=== PATIENT | female | born 1960 | race Caucasian/White ===

== ENCOUNTER → 2020-06-29 09:51 | Outpatient (CLI) | payer OTHER, SELFPAY ==
--- NOTE | ~2020-06-29 | MM_ITS ---
EXAMINATION: MM screening [facility] BI w jeyson HISTORY: Screening mammogram TECHNIQUE: Craniocaudal and mediolateral oblique 3-D tomosynthesis images were obtained and synthetic 2-D images were generated. CAD analysis was submitted and interpreted. COMPARISON: 05/20/2019, 04/16/2018, 03/07/2017 BREAST PARENCHYMAL COMPOSITION: There are scattered areas of fibroglandular density. FINDINGS: There is no evidence of suspicious mass, calcification, or architectural distortion to sugg est malignancy in either breast. There has been no suspicious interval change. IMPRESSION: 1. No mammographic evidence of malignancy. 2. Recommend routine screening mammography in one year. BI-RADS Category 1: Negative Reviewed, dictated and finalized at location A.
== END ==
PROVIDERS: Visit Provider Obstetrics & Gynecology
DX: Z12.31 Encounter for screening mammogram for malignant neoplasm of breast (principal)
CPT/HCPCS: 77063; 77067

== ENCOUNTER → 2021-07-04 10:01 | Outpatient (CLI) | payer OTHER, SELFPAY ==
--- NOTE | ~2021-07-04 | MM_ITS ---
EXAMINATION: MM screening [facility] BI w jeyson HISTORY: Screening mammogram TECHNIQUE: Craniocaudal and mediolateral oblique 3-D tomosynthesis images were obtained and synthetic 2-D images were generated. CAD analysis was submitted and interpreted. COMPARISON: 06/29/2020, 05/20/2019, 04/16/2018 BREAST PARENCHYMAL COMPOSITION: There are scattered areas of fibroglandular density. FINDINGS: There is no evidence of suspicious mass, calcification, or architectural distortion to sugg est malignancy in either breast. There has been no suspicious interval change. IMPRESSION: 1. No mammographic evidence of malignancy. 2. Recommend routine screening mammography in one year. BI-RADS Category 1: Negative Reviewed, dictated and finalized at location A.
== END ==
PROVIDERS: Visit Provider Obstetrics & Gynecology
DX: Z12.31 Encounter for screening mammogram for malignant neoplasm of breast (principal)
CPT/HCPCS: 77063; 77067

== ENCOUNTER → 2022-10-10 12:47 | Outpatient (CLI) | payer OTHER, SELFPAY ==
--- NOTE | ~2022-10-10 | DEXA_ITS ---
Bone Density Report Name: GUZMAN ELIZABETH Age: 62 Sex: Female Ethnicity: White Date of : 1960 Indication: postmenopausal; screening for osteoporosis; height loss; Referring Provider: BILLY, YONATAN Study: Bone densitometry was performed. Exam Date: October 10, 2022 Accession number: [id number] Bone Density: Region BMD T-score Z-score Classification AP Spine (L1-L4) 0.993 -0.5 1.2 Normal Femoral Neck (Left) 0.798 -0.5 1.0 Normal Total Hip (Left) 0.943 0.0 1.1 Normal Femoral Neck (Right) 0.797 -0.5 1.0 Normal Total Hip (Right) 0.940 0.0 1.1 Normal Total Hip Mean 0.942 0.0 1.1 Normal World Health Organization criteria for BMD impression classify patients as: Normal (T-score at or above -1.0), Osteopenia (T-score between -1.0 and -2.5), or Osteoporosis (T-score at or below -2.5). 10-year Fracture Risk: FRAX not reported because: All T-scores for Spine Total, Hip Total, Femoral Neck at or above -1.0 Clinical Information Provided by Patient: Has used the following medications: Calcium, MTV, vit D included in calcium Patient maximum height was 65 Menopause Age: 57 No regular weight bearing exercise Drinks caffeinated beverages Onset of menses at age 13.5 Number of children 2 Impression: The patient has normal bone mass. Discussion: BONE DENSITY IS ABOVE THE MINIMUM DESIRABLE LEVEL AT ALL SKELETAL SITES TESTED. This patient?s bone mineral density is above the minimum desirable level (T-score -1.0 or better) at all sites measured. The patient should follow a healthful lifestyle (good nutrition with adequate calcium and vitamin D, and appropriate weight-bearing exercise). Follow-Up: Consider repeating this study in 5 years or sooner if there is some new clinical indication. Reported by: WILIAN on 10/10/2022 1:26:00 PM. Reviewed, dictated and finalized at location APedro DOHERTY
--- NOTE | ~2022-10-10 | MM_ITS ---
EXAMINATION: MM screening [facility] BI w jeyson HISTORY: Screening TECHNIQUE: Craniocaudal and mediolateral oblique 3-D tomosynthesis images were obtained and synthetic 2-D images were generated. CAD analysis was submitted and interpreted. COMPARISON: Comparison to multiple prior studies sequentially, with oldest reviewed study dated 02/19. BREAST PARENCHYMAL COMPOSITION: There are scattered areas of fibroglandular density. FINDINGS: There is no evidence of suspicious mass, calcification, or architectural distortion to sugg est malignancy in either breast. There has been no suspicious interval change. IMPRESSION: 1. No mammographic evidence of malignancy. 2. Recommend routine screening mammography in one year. BI-RADS Category 1: Negative Reviewed, dictated and finalized at location A. W MACHINE SET UP OPERATOR
== END ==
PROVIDERS: PCP Family Medicine; Visit Provider Registered Nurse School
DX: Z12.31 Encounter for screening mammogram for malignant neoplasm of breast (principal); Z13.820 Encounter for screening for osteoporosis; Z78.0 Asymptomatic menopausal state
CPT/HCPCS: 77063; 77067; 77080

== ENCOUNTER 2023-10-29 10:23 | Outpatient (CLI) | payer OTHER, SELFPAY ==
--- NOTE | 2023-10-29 10:27 | EST_ITS ---
Patient Info Name: Shira Wheeler Age: 63 years : 1960 Gender: Female Ht: 65 in Wt: 145 lbs BSA: 1.75 m2 HR: 61 bpm BP: 129 / 87 mmHg Heart Rhythm: Sinus Rhythm Exam Date: 10/29/2023 10:37 AM Exam Location: Echo Lab Patient Status: Outpatient Admit Date: 10/29/2023 Staff Ordering Physician: Taylor Ross PA-C Attending Provider: Taylor Ross PA-C Exercise Technologist: Germaine Moran CT Exercise Physician: Florin Graham DO Exam Type: CA stress test treadmill Study Info Indications R07.89 - Other chest pain A treadmill exercise stress test was performed. Summary 1. 1. Negative Rogerio exercise stress test for ischemic ST changes by ECG criteria. 2. 2. Good functional capacity, achieving 11.8 METs of workload. 3. 3. Appropriate HR response to exercise. 4. 4. Appropriate HR recovery at 1 minute post exercise. 5. 5. No imaging with stress testing. 6. 6. Patient informed of the abve results. Protocol: Rogerio Stress ECG Details Stage: REST Duration (min): 0 min : 58 sec Speed (mph): 0.0 Grade (%): 0 HR (bpm): 62 SBP (mmHg): 129 DBP (mmHg): 87 METS: --- Stage: REST Duration (min): 5 min : 24 sec Speed (mph): 0.0 Grade (%): 0 HR (bpm): 64 SBP (mmHg): 129 DBP (mmHg): 87 METS: --- Stage: STAGE 1 Duration (min): 1 min : 0 sec Speed (mph): 1.7 Grade (%): 10 HR (bpm): 81 SBP (mmHg): 129 DBP (mmHg): 87 METS: --- Stage: STAGE 1 Duration (min): 2 min : 0 sec Speed (mph): 1.7 Grade (%): 10 HR (bpm): 90 SBP (mmHg): 129 DBP (mmHg): 87 METS: --- Stage: STAGE 1 Duration (min): 3 min : 0 sec Speed (mph): 1.7 Grade (%): 10 HR (bpm): 90 SBP (mmHg): 160 DBP (mmHg): 78 METS: --- Stage: STAGE 2 Duration (min): 1 min : 0 sec Speed (mph): 2.5 Grade (%): 12 HR (bpm): 96 SBP (mmHg): 160 DBP (mmHg): 78 METS: --- Stage: STAGE 2 Duration (min): 2 min : 0 sec Speed (mph): 2.5 Grade (%): 12 HR (bpm): 100 SBP (mmHg): 151 DBP (mmHg): 79 METS: --- Stage: STAGE 2 Duration (min): 3 min : 0 sec Speed (mph): 2.5 Grade (%): 12 HR (bpm): 103 SBP (mmHg): 151 DBP (mmHg): 79 METS: --- Stage: STAGE 3 Duration (min): 1 min : 0 sec Speed (mph): 3.4 Grade (%): 14 HR (bpm): 103 SBP (mmHg): 183 DBP (mmHg): 78 METS: --- Stage: STAGE 3 Duration (min): 2 min : 0 sec Speed (mph): 3.4 Grade (%): 14 HR (bpm): 110 SBP (mmHg): 183 DBP (mmHg): 78 METS: --- Stage: STAGE 3 Duration (min): 3 min : 0 sec Speed (mph): 3.4 Grade (%): 14 HR (bpm): 113 SBP (mmHg): 159 DBP (mmHg): 93 METS: --- Stage: STAGE 4 Duration (min): 0 min : 59 sec Speed (mph): 4.2 Grade (%): 16 HR (bpm): --- SBP (mmHg): 159 DBP (mmHg): 93 METS: --- Stage: RECOVERY Duration (min): 1 min : 0 sec Speed (mph): 0.0 Grade (%): 0 HR (bpm): --- SBP (mmHg): 159 DBP (mmHg):
== END 2023-10-29 10:24 | disposition home or self-care (01) ==
LOC: ANHCARD 10:25
PROVIDERS: PCP Family Medicine; Visit Provider Physician Assistant
DX: R07.9 Chest pain, unspecified (principal)
CPT/HCPCS: 93017

== ENCOUNTER → 2023-10-30 09:38 | Outpatient (CLI) | payer OTHER, SELFPAY ==
--- NOTE | ~2023-10-30 | MM_ITS ---
EXAMINATION: MM screening [facility] BI w jeyson HISTORY: Screening TECHNIQUE: Craniocaudal and mediolateral oblique 3-D tomosynthesis images were obtained and synthetic 2-D images were generated. CAD analysis was submitted and interpreted. COMPARISON: Comparison to multiple prior studies sequentially, with oldest reviewed study dated 03/07. BREAST PARENCHYMAL COMPOSITION: Not dense: There are scattered areas of fibroglandular density. FINDINGS: There is no evidence of suspicious mass, calcification, or architectural distortion to sugg est malignancy in either breast. There has been no suspicious interval change. IMPRESSION: 1. No mammographic evidence of malignancy. 2. Recommend routine screening mammography in one year. BI-RADS Category 1: Negative Reviewed, dictated and finalized at location A. AND HARD OF HEARING TEACHER
== END ==
PROVIDERS: PCP Obstetrics & Gynecology; Visit Provider Obstetrics & Gynecology
DX: Z12.31 Encounter for screening mammogram for malignant neoplasm of breast (principal)
CPT/HCPCS: 77063; 77067

== ENCOUNTER 2024-05-27 01:17 | Day surgery (SDC) | payer OTHER, SELFPAY ==
[2024-05-10 09:13] VITALS: BMI 22.4
[2024-05-27] MEDS: LACTATED RINGERS 1,000 ML 150 ML IV CONT (06:22)
[2024-05-27 06:23] VITALS: BP 115/69; PULSE 64; RESP 16; TEMP 36.5; O2SAT 99
--- NOTE | 2024-05-27 07:25 | WPDANESEPPF ---
Anes - Initial Pre Proc Eval Procedure: Operation Date: 05/27/24 07:30 Proposed Procedures p Colonoscopy - Dev Villalta MD Date/Time: 05/27/24 07:25 Surgeon: Dev Villalta MD Pre Op Diagnosis: Hemorrhoids Patient Data Age: 63 Gender: F Height: 1.65 m Weight: 62 kg Last Vital Signs Temp 97.7 F 05/27/24 06:23 Pulse 64 05/27/24 06:23 Resp 16 05/27/24 06:23 BP 115/69 05/27/24 06:23 Pulse Ox 99 05/27/24 06:23 O2 Del Method Room Air 05/27/24 06:23 Allergies Allergy/AdvReac Type Severity Reaction Status Date / Time No Known Allergies Allergy Unverified 05/27/24 06:14 Home Medications Medication Instructions Recorded Confirmed Type azelastine 137 mcg (0.1 %) nasal See Rx Instructions .Route 07/10/21 05/27/24 Rx spray .COMPLEX #60 mL rosuvastatin 5 mg tablet See Rx Instructions .Route 05/29/23 05/27/24 Rx .COMPLEX #90 tabs gabapentin 100 mg capsule See Rx Instructions .Route 10/30/23 05/27/24 Rx .COMPLEX #100 caps fluoxetine 40 mg capsule 40 mg PO DAILY #90 caps 11/20/23 05/27/24 Rx buspirone 5 mg tablet See Rx Instructions .Route 02/01/24 05/27/24 Rx .COMPLEX #180 tabs diphenoxylate-atropine 2.5 1 tablet PO TID PRN diarrhea #90 02/19/24 05/27/24 Rx mg-0.025 mg tablet tabs amlodipine 5 mg tablet 5 mg PO BID #90 tabs 03/14/24 05/27/24 Rx ipratropium bromide 21 mcg (0.03 2 spray intranasal BID 90 days #30 03/21/24 05/27/24 Rx %) nasal spray mL Patient hx anesthesia problems: none Family hx anesthesia problems: none Results Review: All pre-operative results and documents have been reviewed as part of the pre-operative evaluation. [facility] Past Medical History Medical History Collagenous colitis Graves' disease Hyperlipidemia MDD (major depressive disorder) Family History Family History Grandparent Cerebrovascular accident Mother Cerebrovascular accident Carcinoma of colon Father Family history of lung cancer, Onset Age: 63 Family history of malignant neoplasm of urinary bladder Patient's father is Social History Social History Social History: Smoking status: Never smoker Second hand tobacco smoke exposure: No Alcohol intake: current Alcohol use details: rarely Substance use: never Substance use type: does not use Lack of Transportation: No Lack of Food: Never True Current Housing: I Have Housing Concerned About Future Housing: No Difficulty Paying Gas/Electric Bills: No Difficulty Paying for Meds: YES Currently Unemployed: No Education: Decline to Answer Difficulty w/ Childcare or Family Care: No Living arrangements: with family Occupation/Education: occupation Gender identity (if verbalized by the patient): Female Sexual Orientation (if Verbalized by the Patient): Straight or Heterosexual Spiritual care concerns: No Anes - Eval Final PreProcedure Day of Procedure 05/27/24 07:25 Patient weight: normal Heart: regular rate and rhythm Lungs: clear to auscultation Airway: Mallampati scale class II Neurological: alert and oriented Last oral intake: >/= 8 hours ASA classification: II Emergent: no Anesthetic plan: proceed Anesthesia type and monitoring: general GIVS and standard monitoring Results Review: All pre-operative results and documents have been reviewed as part of the pre-operative evaluation. Informed Consent: The patient's anesthetic plan and its attendant risks and benefits were discussed with the patient/family/POA. Questions were solicited and answers provided to the satisfaction of the patient/family/POA.
--- NOTE | 2024-05-27 07:33 | PM.HPGS ---
History of Present Illness History of Present Illness Consent: Risks, benefits, and alternatives have been discussed and questions answered. Patient agrees to proceed with procedure. Chief complaint: Hemorrhoids Narrative: Shira Wheeler is a 63 year old female here for screening colonoscopy, last one 2018 and diagnosed with collagenous colitis, doing well using probiotics and seldom imodium. She tried budesonide years ago. Review of Systems Review of Systems: All systems reviewed & are unremarkable except as noted in HPI and below PMFSH Past Medical History Medical History Collagenous colitis Graves' disease Hyperlipidemia MDD (major depressive disorder) Family History Family History Grandparent Cerebrovascular accident Mother Cerebrovascular accident Carcinoma of colon Father Family history of lung cancer, Onset Age: 63 Family history of malignant neoplasm of urinary bladder Patient's father is Social History Social History Social History: Smoking status: Never smoker Second hand tobacco smoke exposure: No Alcohol intake: current Alcohol use details: rarely Substance use: never Substance use type: does not use Lack of Transportation: No Lack of Food: Never True Current Housing: I Have Housing Concerned About Future Housing: No Difficulty Paying Gas/Electric Bills: No Difficulty Paying for Meds: YES Currently Unemployed: No Education: Decline to Answer Difficulty w/ Childcare or Family Care: No Living arrangements: with family Occupation/Education: occupation Gender identity (if verbalized by the patient): Female Sexual Orientation (if Verbalized by the Patient): Straight or Heterosexual Spiritual care concerns: No Meds Home Medications and Allergies Home Medications Medication Instructions Recorded Confirmed Type azelastine 137 mcg (0.1 %) nasal See Rx Instructions .Route 07/10/21 05/27/24 Rx spray .COMPLEX #60 mL rosuvastatin 5 mg tablet See Rx Instructions .Route 05/29/23 05/27/24 Rx .COMPLEX #90 tabs gabapentin 100 mg capsule See Rx Instructions .Route 10/30/23 05/27/24 Rx .COMPLEX #100 caps fluoxetine 40 mg capsule 40 mg PO DAILY #90 caps 11/20/23 05/27/24 Rx buspirone 5 mg tablet See Rx Instructions .Route 02/01/24 05/27/24 Rx .COMPLEX #180 tabs diphenoxylate-atropine 2.5 1 tablet PO TID PRN diarrhea #90 02/19/24 05/27/24 Rx mg-0.025 mg tablet tabs amlodipine 5 mg tablet 5 mg PO BID #90 tabs 03/14/24 05/27/24 Rx ipratropium bromide 21 mcg (0.03 2 spray intranasal BID 90 days #30 03/21/24 05/27/24 Rx %) nasal spray mL Allergies Allergy/AdvReac Type Severity Reaction Status Date / Time No Known Allergies Allergy Unverified 05/27/24 06:14 Vital Signs Vital Signs - 24 hr 05/27/24 06:23 Temperature 97.7 F Pulse Rate 64 Respiratory Rate 16 Blood Pressure 115/69 Pulse Oximetry 99 Oxygen Delivery Room Air Exam Const: General: comfortable and no acute distress HENMT: Face/Nose/Sinus: Normal nares present Eyes: General: appearance normal, both eyes and all related structures Neck: Neck: no JVD Resp: Auscultation: clear to auscultation bilaterally Cardio: Rate: regular rate Rhythm: regular rhythm GI: Inspection: non-distended GI Palp: Yes Soft to palpation Skin: General skin exam: normal color Neuro: General: gait normal Speech: normal speech Extrem: General: normal to inspection Psych: Mental Status: mental status grossly normal Assessment and Plan Assessment and plan (1) Collagenous colitis: Code(s): K52.831 - Collagenous colitis Status: Acute Assessment and Plan: colonoscopy doing well
[2024-05-27 07:56] VITALS: BP 102/65; PULSE 60; RESP 17; O2SAT 98
[2024-05-27 08:06] VITALS: BP 105/67; PULSE 57; RESP 16; O2SAT 99
[2024-05-27 08:16] VITALS: BP 122/74; PULSE 56; RESP 16; O2SAT 100
== END 2024-05-27 08:25 | disposition home or self-care (01) ==
PROVIDERS: PCP Family Medicine; Referring Provider Family Medicine; Visit Provider Internal Medicine Gastroenterology
PROC: 0DJD8ZZ Inspection of Lower Intestinal Tract, Via Natural or Artificial Opening Endoscopic (ICD-10-PCS; CPT 45378; principal; 2024-05-27 07:30)
DX: K64.8 Other hemorrhoids (principal); K57.30 Diverticulosis of large intestine without perforation or abscess without bleeding; E78.5 Hyperlipidemia, unspecified; E05.00 Thyrotoxicosis with diffuse goiter without thyrotoxic crisis or storm; F32.9 Major depressive disorder, single episode, unspecified; Z80.0 Family history of malignant neoplasm of digestive organs; Z80.52 Family history of malignant neoplasm of bladder; Z80.1 Family history of malignant neoplasm of trachea, bronchus and lung; Z82.49 Family history of ischemic heart disease and other diseases of the circulatory system
CPT/HCPCS: 45380; 88305; J2704; J7120

== ENCOUNTER 2024-11-05 07:44 | Outpatient (CLI) | payer OTHER, SELFPAY ==
--- NOTE | ~2024-11-05 | MM_ITS ---
EXAMINATION: MM screening [facility] BI w jeyson HISTORY: Screening TECHNIQUE: Craniocaudal and mediolateral oblique 3-D tomosynthesis images were obtained and synthetic 2-D images were generated. CAD analysis was submitted and interpreted. COMPARISON: Comparison to multiple prior studies sequentially, with oldest reviewed study dated 04/16. BREAST PARENCHYMAL COMPOSITION: Not dense: There are scattered areas of fibroglandular density. FINDINGS: There is no evidence of suspicious mass, calcification, or architectural distortion to sugg est malignancy in either breast. There has been no suspicious interval change. IMPRESSION: 1. No mammographic evidence of malignancy. 2. Recommend routine screening mammography in one year. BI-RADS Category 1: Negative Reviewed, dictated and finalized at location B. ATIVE WRITER
== END 2024-11-05 07:45 | disposition home or self-care (01) ==
LOC: MICIMG 07:45
PROVIDERS: PCP Family Medicine; Visit Provider Obstetrics & Gynecology
DX: Z12.31 Encounter for screening mammogram for malignant neoplasm of breast (principal)
CPT/HCPCS: 77063; 77067

== ENCOUNTER 2025-02-02 09:10 | Outpatient (CLI) | payer OTHER, SELFPAY ==
--- OUTSIDE RECORDS SUMMARY | 2025-02-02 09:26 | XMS_ITS | Clinical Summary ---
Author Organization [facility] Address [address] [place] [address] [place] [address] Care Team Providers Care School Counsellor Name Role Phone Unavailable Primary Care Provider Unavailabl e Allergies No known active allergies Immunizations Immunization Administration Dates Next Due INFLUENZA VACCINE QUADRIVALENT 6 MOS UP PF IM Social History Tobacco Use Types Packs/Day Years Used Date Smoking Tobacco: Never Assessed Comments Unknown Sex and Gender Information Value Date Recorded Sex Assigned at Not on file Legal Sex Female 9:07 AM CDT Gender Identity Not on file Sexual Orientation Not on file Plan of Treatment Health Maintenance Due Date Last Done Comments DTAP/TDAP/TD VACCINES (1 - Tdap) 1978 BREAST CANCER SCREENING 1999 COLORECTAL SCREENING 2004 Colorectal Cancer Screening 2004 FIT-DNA Q 3 years 2004 FIT/FOBT Q 1 year 2004 Flex Sig/CT Colonography Q 5 years 2004 PNEUMOCOCCAL VACCINE 50+ YEARS (1 of 1 - PCV) 06/01/20 09 ZOSTER VACCINE (1 of 2) 2009 INFLUENZA VACCINE (#1) 2024 05/30/2023 OSTEOPOROSIS SCREENING 2024 RSV VACCINE (60+ or ) (1 - 1-dose 75+ series) 2034 Insurance RX [employer]
--- NOTE | 2025-02-16 14:08 | P.SLEEP_ITS ---
Sleep Study - Home Unattended Date of Study: 02/02/25 Ordering Provider: Florin Graham DO Interpreting Provider: Annette Reyna DO Home Sleep Study Type: Watch PAT Height: 1.65 m Weight: 61.235 kg Body Mass Index: 22.4 Neck Circumference (inches): 13.5 [place]: 1 Reason for Sleep Study Loss Prevention And Safety Manager ordered due to pulmonary hypertension and palpitations Sleep History The patient is a 64-year-old female that had a sleep study ordered the fagot heater helper sleep apnea. The patient denies awakening from sleep short of breath. She rarely awakens at night with heartburn, belching or cough. She denies snoring loud enough that others complain. She occasionally has trouble sleeping when she has a cold. She denies waking up gasping for air throughout the night. She denies having breathing problems at night observed by herself or others. She denies sweating excessively at night. She occasionally has heart palpitations or irregular heartbeats during the night. She denies falling asleep during the day and while driving. She denies sleep paralysis and cataplexy. She rarely has trouble at school or work due to sleepiness. She rarely experiences vivid dreamlike scenes upon awakening or falling asleep. She rarely feels afraid of going to sleep. She denies having nightmares. She rarely remembers her dreams. She frequently has thoughts racing through her mind. She occasionally feels sad or depressed. She constantly has anxiety. She denies having muscular tension. She denies noticing parts of her body jerk. She denies kicking during the night. She rarely has crawling and aching feelings in her legs and rarely has leg pain during the night. She occasionally grinds her teeth during sleep but never awakens with morning jaw pain. She has rarely bothered by pain during the day and rarely awakened by pain during the night. She rarely wakes up feeling stiff in the morning. She denies waking up with sore or achy muscles. She denies waking up with pain in the neck, spine and other joints. She goes to bed between 8-830 p.m. on weekdays and between 9-10 p.m. on the weekends. It can take her 30 minutes or several hours to fall asleep. She wakes up 3-4 times throughout the night to urinate or get a snack. She is able to fall back asleep within a few minutes. She wakes up at 4:45 a.m. on weekdays at 5:30 a.m. on the weekends. She typically gets 6 hours of sleep per night. She will stay in bed for 5 minutes after waking up in the morning. She currently lives with her . She will consume a D caffeinated beverage within 2 hours of going to bed. She denies engaging in physical exercise before bedtime. She will read before falling asleep. She denies watching television before falling asleep. She denies taking naps in afternoon or the evening. She consumes 2-3 cups of caffeinated beverage per day. She denies tobacco, alcohol and recreational drug use. 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 Sinusitis chronic, ethmoidal RLQ abdominal pain Postmenopausal MDD (major depressive disorder), recurrent episode, moderate Hyperthyroidism Hereditary and idiopathic neuropathy, unspecified Diarrhea in adult patient Colon cancer screening Bronchitis Allergic rhinitis due to pollen Hyperlipidemia Graves' disease MDD (major depressive disorder) Collagenous colitis Surgical History Surgical History S/P radioactive iodine thyroid ablation Family History Family History Grandparent Cerebrovascular accident Mother Cerebrovascular accident Carcinoma of colon Father Family history of lung cancer, Onset Age: 63 Family history of malignant neoplasm of urinary bladder Patient's father is Social History Social History Social History: Smoking status: Never smoker Second hand tobacco smoke exposure: No Alcohol intake: current Alcohol use details: rarely Substance use: never Substance use type: does not use Lack of Transportation: No Lack of Food: Never True Current Housing: I Have Housing Concerned About Future Housing: No Difficulty Paying Gas/Electric Bills: No Difficulty Paying for Meds: YES Currently Unemployed: No Education: Decline to Answer Difficulty w/ Childcare or Family Care: No Living arrangements: with family Occupation/Education: occupation Gender identity (if verbalized by the patient): Female Sexual Orientation (if Verbalized by the Patient): Straight or Heterosexual Spiritual care concerns: No Medications Home Medications Medication Instructions Recorded Confirmed Type buspirone 5 mg tablet See Rx Instructions .Route 09/01/24 11/21/24 Rx .COMPLEX #180 tabs fluoxetine 40 mg capsule See Rx Instructions .Route 09/01/24 11/21/24 Rx .COMPLEX #90 caps rosuvastatin 5 mg tablet See Rx Instructions .Route 09/01/24 09/01/24 Rx .COMPLEX #90 tabs chlorthalidone 25 mg tablet 25 mg PO DAILY #90 tabs 11/29/24 Rx gabapentin 100 mg capsule See Rx Instructions .Route 11/29/24 Rx .COMPLEX #100 caps irbesartan 150 mg tablet 150 mg PO DAILY #90 tabs 11/29/24 Rx ipratropium bromide 21 mcg (0.03 2 spray intranasal BID 90 days #30 12/12/24 Rx %) nasal spray mL Sleep Procedure The sleep study was completed using [employer] a technically adequate device with seven channels: peripheral arterial tone, actigraphy, body position, snore, respiratory movement, pulse oximetry, sleep staging, and heart rate. Prior to using the device, the patient received verbal and written instructions for its application and was provided with the help desk phone number for additional telephonic instruction with 24-hour availability of qualified personnel to answer questions. The study was scored using CMS guidelines. Sleep Architecture The total recording time is 8 hrs, 21 min. The total sleep time is 6 hrs, 17 min. Sleep latency is 16 minutes. REM latency is 287 minutes. The patient had 14 episodes of waking. Sleep architecture shows 14.7% deep sleep, 74.0% light sleep, and (as % Total Sleep Time) showed NREM (Light 74.0%; Deep 14.7%), and a 11.3% stage REM. The patient spent 24.1% of total sleep time in the supine position. Sleep efficiency was 75.25. Respiratory Analysis The overall AHI (pAHI 4%:) is 0.3. The overall AHI (pAHI 3%:) is 1.7. The central AHI is 0.0. The AHI was 1.9 in NREM and 0.0 in REM sleep. The AHI was 3.0 in Supine and 1.3 in Non-supine sleep. Percent of Kael Stern respirations is 0.0. Oximetry Data The oxygen desaturation index (SIDDHARTH 4%:) is 1.0. The mean saturation is 96%, and the lowest saturation is 80%. Time spent with saturation < 88% is 0.1 minutes. Snoring Profile Snoring average intensity is 40 dB. The patient snored above 45 decibels for 7.0 minutes, 1.9% of sleep time. Cardiac Profile The average pulse rate is 65 beats per minutes. The lowest pulse rate is 47 bpm. The highest pulse rate reported is 98 bpm. Atrial fibrillation was not detected. Premature beats occur 1.2 per minute. Assessment and Plan Assessment and Plan (1) Sleep disturbances: Code(s): G47.9 - Sleep disorder, unspecified Status: Acute Assessment and Plan: The patient had an overall AHI of 0.3 with desaturation down to 80%. This is not consistent with sleep disordered breathing. The patient mentioned having constant symptoms of anxiety in her sleep history. I recommend that the patient complete a PHQ-9 and ALBERTO-7 for further evaluation of mood disorders and review the results with her PCP. Uncontrolled mood disorders can contribute to or precipitate insomnia. Data The data obtained during this sleep study is adequate for interpretation. Certification This sleep study has been reviewed by a board certified sleep medicine physician.
[2025-02-16 14:11] VITALS: BMI 22.4
== END 2025-02-03 11:17 | disposition home or self-care (01) ==
LOC: ANHCSM 09:10
PROVIDERS: PCP Family Medicine; Visit Provider Internal Medicine Cardiovascular Disease
DX: G47.10 Hypersomnia, unspecified (principal); G47.9 Sleep disorder, unspecified
CPT/HCPCS: 95800